=== PATIENT | female | born 1945 | race Caucasian/White ===

== ENCOUNTER 2016-12-05 16:32 | Inpatient (IN) | payer MEDICARE, OTHER ==
[~2016-12-05] VITALS: Ht 157.5 cm; Wt 89.9 kg
[2016-12-05 17:13] LABS: BASO # 0.1 x10^3/uL (0.0-0.2); BASO % 0 % (0-3); EOS % 0 % (0-3); HEMATOCRIT 38.3 % (36.0-47.0); HEMOGLOBIN 11.8 g/dL (12.0-15.5); LYMPH % 6 % (24-48); MEAN CORPUSCULAR HEMOGLOBIN 26 pg (25-35); MEAN CORPUSCULAR HGB CONC 31 g/dL (31-37); MEAN CORPUSCULAR VOLUME 82 fL (79-100); MONO % 5 % (0-9); NEUT % 89 % (31-73); PLATELET COUNT 415 x10^3/uL (140-400); RED BLOOD COUNT 4.65 x10^6/uL (3.50-5.40); RED CELL DISTRIBUTION WIDTH 17.4 % (11.5-14.5); WHITE BLOOD COUNT 33.3 x10^3/uL (4.0-11.0)
[2016-12-05 17:28] LABS: CALCIUM 9.5 mg/dL (8.5-10.1); CREATININE 1.4 mg/dL (0.6-1.0); GFR 37.3; POTASSIUM 3.9 mmol/L (3.5-5.1)
[2016-12-05] MEDS ORDERED: IV NORMAL SALINE 1000ML BAG 1,000 ML IV ONE (17:30)
[2016-12-05] MEDS ORDERED: CEFTRIAXONE 1GM IVPB FOR OMNI 50 ML IV ONE (17:30)
--- NOTE | 2016-12-05 17:31 | PHYS DOC ---
Past Medical History Past Medical History: COPD, Fibromyalgia Past Surgical History: Appendectomy, Cholecystectomy, Hysterectomy Drug Use: None Adult General Chief Complaint Chief Complaint: SHORTNESS OF BREATH HPI HPI Patient is a 71 year old female who presents with shortness of breath, confusion, cough. Patient reports she woke up short of breath. On arrival to the ED her oxygen saturation was in the 80s on room air. Patient reports she wears 3 L of oxygen at night, but none during the day. She denies any chest discomfort. She does report feeling a little for her arms and legs. She has had a cough for the past couple days,. In addition, she does feel a little bit confused. She denies fever. She has not taken anything specifically for these symptoms. She did take 2 Percocet this morning which is her usual dose of pain medication for her fibromyalgia. Review of Systems Review of Systems Constitutional: Denies fever or chills Eyes: Denies change in visual acuity or eye pain HENT: Denies nasal congestion or sore throat Respiratory: Cough, shortness of breath Cardiovascular: Denies chest pain GI: Denies abdominal pain, nausea, vomiting, bloody stools or diarrhea : Denies dysuria or hematuria Musculoskeletal: Achy in arms and legs Integument: Denies rash or skin lesions Neurologic: Mild confusion. Denies headache, focal weakness or sensory changes Current Medications Current Medications Current Medications Medications (Trade) Dose Ordered Sig/Chey Start Time Stop Time Status Last Admin Dose Admin Azithromycin (Zithromax 500mg Ivpb For Omni) 250 ml @ 250 mls/hr 1X ONCE 12/05/16 18:00 12/05/16 18:59 Ceftriaxone Sodium 50 ml @ 100 mls/hr 1X ONCE 12/05/16 17:30 12/05/16 17:59 Sodium Chloride 1,000 ml @ 1,000 mls/hr 1X ONCE 12/05/16 17:30 12/05/16 18:29 12/05/16 17:27 1,000 MLS/HR Allergies Allergies Allergies Coded Allergies Type Severity Reaction Last Updated Verified pregabalin Adverse Reaction Mild WEIGHT GAIN 12/05/16 Yes Physical Exam Physical Exam Constitutional: Well developed, well nourished HENT: Normocephalic, atraumatic, bilateral external ears normal Eyes: EOMI, conjunctiva normal, no discharge Neck: Normal range of motion, no stridor Cardiovascular: Heart rate normal, regular rhythm, no murmur Lungs & Thorax: Bilateral breath sounds clear to auscultation Abdomen: Bowel sounds normal, soft, non-distended, no TTP Skin: Warm, dry, no erythema, no rash Extremities: No obvious deformity, no edema Neurologic: Somnolent but arousable, oriented X 3, strength and sensation to light touch intact and symmetrical throughout, no gross deficits noted Current Patient Data Vital Signs Vital Signs Date Time Temp Pulse Resp B/P Pulse Ox O2 Delivery O2 Flow Rate FiO2 12/05/16 16:38 98.5 69 16 116/55 91 Nasal Cannula 1.5 98.5 Lab Values Laboratory Tests Test 12/05/16 17:00 White Blood Count 33.3x10^3/uL (4.0-11.0) H Red Blood Count 4.65x10^6/uL (3.50-5.40) Hemoglobin 11.8g/dL (12.0-15.5) L Hematocrit 38.3% (36.0-47.0) Mean Corpuscular Volume 82fL (79-100) Mean Corpuscular Hemoglobin 26pg (25-35) Mean Corpuscular Hemoglobin Concent 31g/dL (31-37) Red Cell Distribution Width 17.4% (11.5-14.5) H Platelet Count 415x10^3/uL (140-400) H Neutrophils (%) (Auto) 89% (31-73) H Lymphocytes (%) (Auto) 6% (24-48) L Monocytes (%) (Auto) 5% (0-9) Eosinophils (%) (Auto) 0% (0-3) Basophils (%) (Auto) 0% (0-3) Neutrophils # (Auto) 29.5x10^3uL (1.8-7.7) H Lymphocytes # (Auto) 2.0x10^3/uL (1.0-4.8) Monocytes # (Auto) 1.5x10^3/uL (0.0-1.1) H Eosinophils # (Auto) 0.1x10^3/uL (0.0-0.7) Basophils # (Auto) 0.1x10^3/uL (0.0-0.2) Segmented Neutrophils % 67% (35-66) H Band Neutrophils % 22% (0-9) H Lymphocytes % 7% (24-48) L Monocytes % 4% (0-10) Toxic Granulation Slight Platelet Estimate Adequate (ADEQUATE) Anisocytosis Slight Sodium Level 145mmol/L (136-145) Potassium Level 3.9mmol/L (3.5-5.1) Chloride Level 106mmol/L (98-107) Carbon Dioxide Level 30mmol/L (21-32) Anion Gap 9 (6-14) Blood Urea Nitrogen 19mg/dL (7-20) Creatinine 1.4mg/dL (0.6-1.0) H Estimated GFR (Cockcroft-Gault) 37.3 Glucose Level 134mg/dL (70-99) H Calcium Level 9.5mg/dL (8.5-10.1) Troponin I Quantitative < 0.017ng/mL (0.000-0.055) AA-Rev-M-Type Natriuretic Peptide 1357pg/mL (0-124) H Laboratory Tests 12/05/16 17:00 Laboratory Tests 12/05/16 17:00 EKG EKG EKG (my read): sinus rhythm, rate 66, normal axis, MS 206ms, no acute ST/T changes Radiology/Procedures Radiology/Procedures CXR (my read): Hazy opacity R lower lung field Course & Med Decision Making Course & Med Decision Making Pertinent Labs and Imaging studies reviewed. (See chart for details) Patient is 71-year-old female who presents with shortness of breath, cough, slight confusion. Has history of COPD, question whether she could be hypercarbic although she does have clear lung sounds. Will obtain EKG, chest x- ray, labs to evaluate. EKG and imaging results as above. Labs notable for white blood count 33,000. Will also obtain lactic acid and blood cultures. ABG shows mild acidosis with pCO2 56.2. Will trial BiPAP. Will treat as community- acquired pneumonia this time given white count and chest x-ray findings. Liter of saline ordered. Discussed results with patient and son-in-law. Discussed with Dr. Flowers, will admit under her care for further evaluation and treatment. Patient's daughter can be reached at: Lexy Soto Trevor Disclaimer Trevor Disclaimer This electronic medical record was generated, in whole or in part, using a voice recognition dictation system. Departure Departure Impression: Primary Impression: SOB (shortness of breath) Additional Impression: Pneumonia Disposition: 09 ADMITTED INPATIENT Admitting Physician: Isaac Flowers Condition: GUARDED Referrals: UNKNOWN PCP NAME (PCP) Problem Qualifiers CHRISTIANA MCADAMS MD Dec 05, 2016 17:31
[2016-12-05 17:33] LABS: PLT ESTIMATE ADEQUATE (ADEQUATE)
[2016-12-05 17:34] LABS: ANISOCYTOSIS SLIGHT; TOXIC GRANULATION SLIGHT
[2016-12-05 17:35] LABS: HCO3 ABG 29 mmol/L (21-28); PCO2 ABG 56 mmHg (35-46); PH ABG 7.33 (7.35-7.45); PO2 ABG 61 mmHg (65-108); SAT O2 ABG 88 % (92-99)
[2016-12-05 17:56] LABS: OBC FLU VALID
[2016-12-05] MEDS ORDERED: AZITHRMYCN 500MG IVPB FOR OMNI 250 ML IV ONE (18:00)
[2016-12-05 18:07] LABS: FIO2 ABG 32
--- NOTE | 2016-12-05 18:31 | ACF ---
Admission Forms Criteria PNEUMONIA, COMMUNITY ACQUIRED Clinical Indications for Admission to Inpatient Care ( Place 'X' for any and all applicable criteria): Admission is indicated for ANY ONE of the following (1)(2)(3): [X]I. Hypoxemia indicated by ANY ONE of the following: [X]a) Oxygen saturation less than 90% while breathing room air [ ]b) PO2 less than 60 mm Hg (8.0 kPa) while breathing room air [ ]c) Chronic lung disease with significant deterioration from baseline oxygenation [ ]II. Appropriate diagnostic testing and treatment unavailable in outpatient or recovery facility (eg,testing or infection control measures unavailable(10) [ ]III. Moderate-risk or high-risk category patients (Pneumonia Severity Index (PSI) class IV or V, or CURB-65 score of 3 or greater). [ ]IV. Outpatient treatment failure as indicated by ANY ONE of the following(9) : [ ]a) Failure to respond to antibiotic (eg, resistant organism) [ ]b) Clinically significant adverse effects from medication (eg, vomiting) [ ]c) Complications of pneumonia (eg, empyema, bacteremia) [ ]d) Significant worsening of comorbid cond necessitating inpatient care (eg, chronic heart failure) [ ]V. Intermediate-risk category patients (eg, PSI class III or CURB-65 score 2) who do not improve with initial therapy and observation. [ ]. Immunocompromised patients (eg, AIDS, chronic steroid use) at moderate or high risk based on clinical evaluation. [ ]VII. Complicated pleural effusions (eg, exudative, loculated) [ ]VIII.Hemodynamic instability [ ] IX. Altered mental status that is severe or persistent. [ ]X. Dehydration that is severe or persistent. [ ]XI. Bacteremia [ ]XII. Respiratory finding (eg. tachypnea) that do not respond to outpatient or observation care treatment Extended stay beyond goal length of stay may be needed for (20) [ ]a) Unclear diagnosis [ ]b) Pleural disease [ ]c) Severe pneumonia or treatment failure (25 [ ]d) Respiratory failure (anticipate invasive or noninvasive ventilatory support) [ ]e) Abnormal serum electrolytes (serum Na concentration less than 135 mEq/L (mmol/L) (32)(33) [ ]f) Clinically significant comorbid illness (eg, heart failure, atrial fibrillation with rapid heart rate, alcohol withdrawal, renal insufficiency)(34)(35) [ ]g) Comorbid acute exacerbation of COPD(36) [ ]h) Concomitant diagnosis of malignancy that may be associated with malnutrition, immunologic impairment, or bronchial obstruction. [ ]i) Concomitant altered mental status [ ]j) Culture-identified Gram-negative or antibiotic-resistant organism (eg, Pseudomonas, methicillin-resistant Staphylococcus aureus)(30) [ ]k) Healthcare-associated pneumonia The original [employer] content created by [employer] has been revised. The portions of the content which have been revised are identified through the use of italic text or in bold, and [facility] has neither reviewed nor approved the modified material. All other unmodified content is copyright [employer]. Please see references footnoted in the original [employer] [facility] edition 2016 Admission Criteria Met?: Yes HORACE GANN Dec 05, 2016 18:31
[2016-12-05 18:45] VITALS: BP 115/68
[2016-12-05 19:00] VITALS: BP 115/68
[2016-12-05 20:00] VITALS: BP 87/45
[2016-12-05 21:00] VITALS: BP 100/57
[2016-12-05 22:00] VITALS: BP 91/52
[2016-12-05 23:00] VITALS: BP 101/50
[2016-12-06] VITALS (17 sets, daily range): BP systolic 82–151; BP diastolic 42–72
[2016-12-06] MEDS ORDERED: MORPHINE SULFATE 2 MG/ML DISP.SYRIN. IV PRN
[2016-12-06] MEDS ORDERED: BENZOCAINE/MENTHOL LOZENGE. PO PRN
[2016-12-06] MEDS: MORPHINE SULFATE 2 MG/ML DISP.SYRIN. IV PRN (00:15)
--- NOTE | 2016-12-06 06:08 | EKG ---
[facility] [address] [place] [address] Test Date: 2016-12-05 Test Time: 16:46:05 Pat Name: ANTHONY BROWN Department: Room: Gender: F Mandarin Chinese Teacher: : 1945 Requested By: CHRISTIANA MCADAMS Order Number: [id number] Reading MD: Measurements Intervals [place] Rate: 66 P: 90 HI: 206 QRS: 46 QRSD: 84 T: 38 QT: 426 QTc: 448 Interpretive Statements SINUS RHYTHM NORMAL ECG RI6.01 Unconfirmed report No previous ECG available for comparison
--- NOTE | 2016-12-06 08:15 | RAD ---
Portable chest, 12/05/2016: History: Shortness of breath, COPD The heart appears to be within normal limits in size for the AP technique. The pulmonary vascularity is normal. No pulmonary infiltrate is seen. There is no evidence of pleural fluid. Surgical clips are evident in the left upper quadrant. IMPRESSION: No acute cardiopulmonary abnormality is detected.
[2016-12-06] MEDS: IPRATRPIUM/ALBUTEROL 0.5/2.5MG 3 ML NEBU. NEB SCH ×3 (12:00→20:06)
[2016-12-06] MEDS: AZITHROMYCIN 250 MG TABLET PO SCH (12:29)
[2016-12-06] MEDS: methylPREDNISolone SOD SUCC PF 40 MG/ML VIAL. IV SCH ×2 (12:29→21:43)
--- NOTE | 2016-12-06 12:47 | PDOC ---
OBJECTIVE Vital Signs Vital Signs Date Time Temp Pulse Resp B/P Pulse Ox O2 Delivery O2 Flow Rate FiO2 12/06/16 12:00 98.2 57 18 108/72 100 Nasal Cannula 2.0 98.2 12/06/16 12:00 Nasal Cannula 2.0 12/06/16 11:00 46 17 99/55 100 Nasal Cannula 2.0 12/06/16 10:00 55 19 111/60 100 Nasal Cannula 2.0 12/06/16 09:00 52 18 88/62 98 Nasal Cannula 2.0 12/06/16 08:00 Nasal Cannula 3.0 12/06/16 08:00 53 17 104/42 98 Nasal Cannula 2.0 12/06/16 07:00 98.1 18 90/43 98 Nasal Cannula 3.0 98.1 12/06/16 06:00 51 17 91/44 98 Nasal Cannula 3.0 12/06/16 05:00 50 22 90/61 98 Nasal Cannula 3.0 12/06/16 04:00 97.8 56 19 119/51 98 Nasal Cannula 3.0 97.8 12/06/16 04:00 Nasal Cannula 3.0 12/06/16 03:00 47 20 82/57 97 Nasal Cannula 3.0 12/06/16 02:00 51 17 90/47 95 Nasal Cannula 3.0 12/06/16 01:06 19 97 Nasal Cannula 3.0 12/06/16 01:00 53 19 90/46 97 Nasal Cannula 3.0 12/06/16 00:15 20 97 Nasal Cannula 3.0 12/06/16 00:00 97.8 56 19 100/57 95 Nasal Cannula 3.0 97.8 12/06/16 00:00 Nasal Cannula 3.0 12/05/16 23:00 63 15 101/50 96 Nasal Cannula 3.0 12/05/16 22:00 61 16 91/52 95 BiPAP/CPAP 12/05/16 21:00 58 15 100/57 97 BiPAP/CPAP 12/05/16 20:32 99 BiPAP/CPAP 12/05/16 20:00 Bi-pap 12/05/16 20:00 97.7 63 16 87/45 96 BiPAP/CPAP 97.7 12/05/16 19:00 63 16 115/68 96 BiPAP/CPAP 12/05/16 18:45 97.5 54 18 115/68 96 BiPAP/CPAP 97.5 12/05/16 18:00 99 BiPAP/CPAP 12/05/16 17:36 61 17 97/65 83 Nasal Cannula 1.5 12/05/16 17:06 59 16 79/56 89 Nasal Cannula 1.5 12/05/16 16:38 98.5 69 16 116/55 91 Nasal Cannula 1.5 98.5 12/05/16 16:36 67 16 116/55 95 Nasal Cannula 1.5 I & O Intake and Output 12/06/16 07:00 Intake Total 1800 ml Balance 1800 ml Intake Oral 500 ml IV Total 1300 ml # Voids 1 ASSESSMENT/PLAN Assessment/Plan [id number] H&P dictated Problems: COMMENT Lab Laboratory Tests Test 12/05/16 16:42 12/05/16 17:00 12/05/16 17:20 O2 Saturation 88% (92-99) Arterial Blood pH 7.33 (7.35-7.45) Arterial Blood pCO2 at Patient Temp 56mmHg (35-46) Arterial Blood pO2 at Patient Temp 61mmHg (65-108) Arterial Blood HCO3 29mmol/L (21-28) Arterial Blood Base Excess 2mmol/L (-3-3) FiO2 32 White Blood Count 33.3x10^3/uL (4.0-11.0) Red Blood Count 4.65x10^6/uL (3.50-5.40) Hemoglobin 11.8g/dL (12.0-15.5) Hematocrit 38.3% (36.0-47.0) Mean Corpuscular Volume 82fL (79-100) Mean Corpuscular Hemoglobin 26pg (25-35) Mean Corpuscular Hemoglobin Concent 31g/dL (31-37) Red Cell Distribution Width 17.4% (11.5-14.5) Platelet Count 415x10^3/uL (140-400) Neutrophils (%) (Auto) 89% (31-73) Lymphocytes (%) (Auto) 6% (24-48) Monocytes (%) (Auto) 5% (0-9) Eosinophils (%) (Auto) 0% (0-3) Basophils (%) (Auto) 0% (0-3) Neutrophils # (Auto) 29.5x10^3uL (1.8-7.7) Lymphocytes # (Auto) 2.0x10^3/uL (1.0-4.8) Monocytes # (Auto) 1.5x10^3/uL (0.0-1.1) Eosinophils # (Auto) 0.1x10^3/uL (0.0-0.7) Basophils # (Auto) 0.1x10^3/uL (0.0-0.2) Segmented Neutrophils % 67% (35-66) Band Neutrophils % 22% (0-9) Lymphocytes % 7% (24-48) Monocytes % 4% (0-10) Toxic Granulation Slight Platelet Estimate Adequate (ADEQUATE) Anisocytosis Slight Sodium Level 145mmol/L (136-145) Potassium Level 3.9mmol/L (3.5-5.1) Chloride Level 106mmol/L (98-107) Carbon Dioxide Level 30mmol/L (21-32) Anion Gap 9 (6-14) Blood Urea Nitrogen 19mg/dL (7-20) Creatinine 1.4mg/dL (0.6-1.0) Estimated GFR (Cockcroft-Gault) 37.3 Glucose Level 134mg/dL (70-99) Lactic Acid Level 1.2mmol/L (0.4-2.0) Calcium Level 9.5mg/dL (8.5-10.1) Troponin I Quantitative < 0.017ng/mL (0.000-0.055) GJ-[id number]-R-Type Natriuretic Peptide 1357pg/mL (0-124) Thyroid Stimulating Hormone (TSH) 1.050uIU/mL (0.358-3.74) Influenza Type A Antigen Negative (NEGATIVE) Influenza Type B Antigen Negative (NEGATIVE) NAVDEEP BELLA MD Dec 06, 2016 12:46
[2016-12-06] MEDS: CEFTRIAXONE SODIUM 1 GM in IV NORMAL SALINE 50ML 50 ML IV SCH (13:04)
[2016-12-06] MEDS: CITALOPRAM 20 MG TABLET. PO SCH (13:04)
[2016-12-06] MEDS: GABAPENTIN 300 MG CAPSULE. PO SCH ×2 (13:04→21:43)
--- NOTE | 2016-12-06 13:10 | PREOP HP ---
DATE OF SERVICE: HISTORY OF PRESENT ILLNESS: The patient is a 71-year-old lady who presented to the Emergency Room complaining of increasing shortness of breath. She is slightly confused, coughing, has not felt good. She was hypoxic upon her arrival to the Emergency Room with sats in the 80s. She does not normally wear oxygen at home. She denies chest pain, nausea, vomiting, diarrhea or constipation, fever or chills. She was feeling confused, coughing, having increasing shortness of breath and pain in the lower extremities. PAST MEDICAL HISTORY: Significant for COPD and emphysema, previous history of pneumonia, gastroesophageal reflux disease, cholecystectomy, previous history of hysterectomy, UTIs in the past. Also, history of depression and neuropathy. SOCIAL HISTORY: She quit smoking. She denies use of alcohol or drug use. She had a flu shot and pneumonia vaccine in the past. REVIEW OF SYSTEMS: CONSTITUTIONAL: Denies fever or chills. EYES: Denies visual changes. HEENT: Denies nasal congestion or sore throat. RESPIRATORY: Does have cough and increasing shortness of breath. CARDIOVASCULAR: Denies chest pain. Denies dizziness or syncope. GASTROINTESTINAL: Denies abdominal pain, nausea or vomiting. GENITOURINARY: Denies dysuria. MUSCULOSKELETAL: She does have pain in her lower extremity and symptoms of neuropathy. PHYSICAL EXAMINATION: GENERAL: She is well-developed and she was in distress upon arrival to the Emergency Room. She is now off the CPAP. HEENT: Normocephalic, atraumatic. Eyes with conjunctiva color normal. NECK: Supple. HEART: Regular rate and rhythm, but bradycardic most of the night and is bradycardic now. ABDOMEN: Soft, nontender, no flank pain. SKIN: Warm and dry. EXTREMITIES: No edema, clubbing or cyanosis. NEUROLOGIC: She moves all extremities. IMPRESSION: 1. Chronic obstructive pulmonary disease exacerbation with hypoxia. 2. Leukocytosis and possible pneumonia. 3. Chronic kidney disease. 4. Neuropathy. 5. Depression. 6. Hypotension. PLAN: The patient is admitted, started on CPAP, hydration, antibiotics, steroids, bronchodilators and pulmonary consultation. We will check TSH for the bradycardia and consult Cardiology as well. NAVDEEP BELLA MD DR: BETH/marvel JOB#: [id number] / [id number]
[2016-12-06 14:03] LABS: BILIRUBIN,URINE NEGATIVE (NEG); GLUCOSE,URINE NEGATIVE (NEG); NITRITE,URINE NEGATIVE (NEG); PROTEIN,URINE NEGATIVE (NEG-TRACE)
[2016-12-06 14:15] LABS: BACTERIA,URINE 0 /HPF (0-FEW); RBC,URINE 0 /HPF (0-2); SQUAMOUS EPITHELIAL CELL,UR FEW /LPF; WBC,URINE >40 /HPF (0-4)
--- NOTE | 2016-12-06 15:35 | PDOC2 ---
CARDIAC CONSULT DATE OF CONSULT Date of Consult DATE: 12/06/16 TIME: 13:20 REASON FOR CONSULT Reason for Consult: Bradycardia REFERRING PHYSICIAN Referring Physician: Dr. Flowers SOURCE Source: Chart review, Patient HISTORY OF PRESENT ILLNESS HISTORY OF PRESENT ILLNESS This is a 71 yo female who presented secondary to shortness of breath, confusion , and excessive sleepiness/drowsiness. Patient reports symptoms began upon awakening yesterday morning. Oxygen saturation in 80's on RA upon arrival to ED. Normal wears O2 at HS. Denies any chest pain, palpitations, dizziness, diaphoresis, or n/v. Reports compliance with medications. Recalls h/o bradycardia. Office notes review- HR generally in upper 50's to low 60's per recorded vitals. Recent cough/ congestion treated with course of antibiotics. PAST MEDICAL HISTORY Cardiovascular: Hyperlipidemia, Other (bradycardia ) Pulmonary: COPD, Pneumonia, Other (SHANNON with 2LNC at HS) CENTRAL NERVOUS SYSTEM: Periperal neuropathy GI: GERD Psych: Anxiety, Depression Musculoskeletal: Osteoarthritis, Other (chronic pain) Renal/: UTI PAST SURGICAL HISTORY Past Surgical History: Cholecystectomy, Hysterectomy, Colectomy, Other (Basilio shunt, ) FAMILY HISTORY Family History: Coronary Artery Disease, Stroke SOCIAL HISTORY Smoke: No ALCOHOL: none Lives: Alone CURRENT MEDICATIONS CURRENT MEDICATIONS Current Medications Medications (Trade) Dose Ordered Sig/Chey Route PRN Reason Start Time Stop Time Status Last Admin Dose Admin Sodium Chloride 1,000 ml @ 1,000 mls/hr 1X ONCE IV 12/05/16 17:30 12/05/16 18:29 DC 12/05/16 17:27 Ceftriaxone Sodium 50 ml @ 100 mls/hr 1X ONCE IV 12/05/16 17:30 12/05/16 17:59 DC 12/05/16 17:56 Azithromycin (Zithromax 500mg Ivpb For Omni) 250 ml @ 250 mls/hr 1X ONCE IV 12/05/16 18:00 12/05/16 18:59 DC 12/05/16 18:12 Morphine Sulfate 2 mg PRN Q4HRS PRN IV SEVERE PAIN 12/06/16 00:00 12/06/16 00:15 Throat Lozenges 1 kristina 1 kristina PRN Q2HRS PRN PO SORE THROAT 12/06/16 00:00 12/06/16 00:14 Ceftriaxone Sodium/Sodium Chloride (Rocephin/Iv Sodium Chloride 0.9% 50ml) 50 ml @ 100 mls/hr Q24H IV 12/06/16 12:00 12/06/16 13:04 Azithromycin (Zithromax) 500 mg DAILY PO 12/06/16 12:00 12/06/16 12:29 Methylprednisolone Sodium Succinate (Solu-Medrol 40mg Vial) 40 mg Q8HRS IV 12/06/16 12:00 12/06/16 12:29 Citalopram Hydrobromide (Celexa) 20 mg DAILY PO 12/06/16 13:00 12/06/16 13:04 Gabapentin (Neurontin) 300 mg TID PO 12/06/16 14:00 12/06/16 13:04 ALLERGIES ALLERGIES: Coded Allergies: pregabalin (Verified Adverse Reaction, Mild, WEIGHT GAIN, 12/05/16) ROS Review of System 14 point ROS conducted with pertinent positives noted above in HPI PHYSICAL EXAM General: Alert, Oriented X3, Cooperative, No acute distress HEENT: Atraumatic, Mucous membr. moist/pink Lungs: Clear to auscultation, Normal air movement Heart: Normal S1, Normal S2, Other (SB- HR 50) Abdomen: No tenderness Extremities: No edema, Normal pulses Skin: No breakdown, No significant lesion Neuro: Normal speech, Sensation intact Psych/Mental Status: Mental status NL, Mood NL MUSCULOSKELETAL: Osteoarthritic changes both hands VITALS VITALS Vital Signs Date Time Temp Pulse Resp B/P Pulse Ox O2 Delivery O2 Flow Rate FiO2 12/06/16 12:00 98.2 57 18 108/72 100 Nasal Cannula 2.0 98.2 LABS Lab: Laboratory Tests Test 12/05/16 16:42 12/05/16 17:00 12/05/16 17:20 12/05/16 19:00 O2 Saturation 88% (92-99) Arterial Blood pH 7.33 (7.35-7.45) Arterial Blood pCO2 at Patient Temp 56mmHg (35-46) Arterial Blood pO2 at Patient Temp 61mmHg (65-108) Arterial Blood HCO3 29mmol/L (21-28) Arterial Blood Base Excess 2mmol/L (-3-3) FiO2 32 White Blood Count 33.3x10^3/uL (4.0-11.0) Red Blood Count 4.65x10^6/uL (3.50-5.40) Hemoglobin 11.8g/dL (12.0-15.5) Hematocrit 38.3% (36.0-47.0) Mean Corpuscular Volume 82fL (79-100) Mean Corpuscular Hemoglobin 26pg (25-35) Mean Corpuscular Hemoglobin Concent 31g/dL (31-37) Red Cell Distribution Width 17.4% (11.5-14.5) Platelet Count 415x10^3/uL (140-400) Neutrophils (%) (Auto) 89% (31-73) Lymphocytes (%) (Auto) 6% (24-48) Monocytes (%) (Auto) 5% (0-9) Eosinophils (%) (Auto) 0% (0-3) Basophils (%) (Auto) 0% (0-3) Neutrophils # (Auto) 29.5x10^3uL (1.8-7.7) Lymphocytes # (Auto) 2.0x10^3/uL (1.0-4.8) Monocytes # (Auto) 1.5x10^3/uL (0.0-1.1) Eosinophils # (Auto) 0.1x10^3/uL (0.0-0.7) Basophils # (Auto) 0.1x10^3/uL (0.0-0.2) Segmented Neutrophils % 67% (35-66) Band Neutrophils % 22% (0-9) Lymphocytes % 7% (24-48) Monocytes % 4% (0-10) Toxic Granulation Slight Platelet Estimate Adequate (ADEQUATE) Anisocytosis Slight Sodium Level 145mmol/L (136-145) Potassium Level 3.9mmol/L (3.5-5.1) Chloride Level 106mmol/L (98-107) Carbon Dioxide Level 30mmol/L (21-32) Anion Gap 9 (6-14) Blood Urea Nitrogen 19mg/dL (7-20) Creatinine 1.4mg/dL (0.6-1.0) Estimated GFR (Cockcroft-Gault) 37.3 Glucose Level 134mg/dL (70-99) Lactic Acid Level 1.2mmol/L (0.4-2.0) Calcium Level 9.5mg/dL (8.5-10.1) Troponin I Quantitative < 0.017ng/mL (0.000-0.055) TS-Mzi-[id number]-Type Natriuretic Peptide 1357pg/mL (0-124) Thyroid Stimulating Hormone (TSH) 1.050uIU/mL (0.358-3.74) Influenza Type A Antigen Negative (NEGATIVE) Influenza Type B Antigen Negative (NEGATIVE) Nasal Screen MRSA (PCR) Negative (Negative) Test 12/06/16 13:09 Urine Collection Type Unknown Urine Color Yellow Urine Clarity Clear Urine pH 6.0 Urine Specific [place] <=1.005 Urine Protein Negativemg/dL (NEG-TRACE) Urine Glucose (UA) Negativemg/dL (NEG) Urine Ketones (Stick) Negativemg/dL (NEG) Urine Blood Negative (NEG) Urine Nitrite Negative (NEG) Urine Bilirubin Negative (NEG) Urine Urobilinogen Dipstick 1.0mg/dL (0.2 mg/dL) Urine Leukocyte Esterase Moderate (NEG) Urine RBC 0/HPF (0-2) Urine WBC >40/HPF (0-4) Urine Squamous Epithelial Cells Few/LPF Urine Bacteria 0/HPF (0-FEW) ECHOCARDIOGRAM ECHOCARDIOGRAM <Conclusion> The left ventricular systolic function is normal. The Ejection Fraction is 55-60%. There is normal LV segmental wall motion. Trace to mild mitral regurgitation. Trace tricuspid regurgitation. There is mild pulmonary hypertension. The PA pressure was estimated at 32 mmHg. There is no evidence of significant pericardial effusion. DATE: 12/06/16 1700 ASSESSMENT/PLAN ASSESSMENT/PLAN 1. Bradycardia, asymptomatic TSH WNL Avoid AV jean carlos blocking agents. Narcotics contributor ? monitor tele- if prolonged pause- consider PPM If no acute events on telemetry- event monitor at discharge 2. Acute hypoxic respiratory failure with AE COPD improved per pul 3. Leukocytosis ? acute viral illness check UA antibiotics initiated 4. Mild NT Pro BNP CXR with no vascular congestion echo with normal LV function; EF 55-60% no s/s of overt HF continue routine oral lasix 5. MARY with CKD Problems: ALEJANDRO CRAFT APRN Dec 06, 2016 15:35
--- NOTE | 2016-12-06 17:01 | CARD ---
APPROVED REPORT EXAM: Two-dimensional and M-mode echocardiogram with Doppler and color Doppler. Other Information Quality : Good INDICATION Dyspnea Elevated BNP 2D DIMENSIONS RVDd3.5 (2.9-3.5cm)Left Atrium(2D)3.7 (1.6-4.0cm) IVSd1.0 (0.7-1.1cm)Aortic Root(2D)2.7 (2.0-3.7cm) LVDd4.5 (3.9-5.9cm)LVOT Diameter2.1 (1.8-2.4cm) PWd1.0 (0.7-1.1cm)LVDs2.8 (2.5-4.0cm) FS (%) 30.0 %SV62.7 ml LVEF(%)60.0 (>50%) M-Mode DIMENSIONS Aortic Cusp Exc1.36 (1.5-2.0cm) Aortic Valve AoV Peak Stan.238.8cm/sAoV VTI50.0cm AO Peak GR.22.8mmHgLVOT VTI 30.89cm AO Mean GR.11mmHgAVA (VTI)2.10cm2 Mitral Valve MV E Zgzumxup689.9cm/sMV DECEL [id number] MV A Tevdkwac13.1cm/sE/A Ratio1.4 TDI Lateral E' P. V12.36cm/sMedial E' P. V6.63cm/s E/Lateral E'9.9E/Medial E'18.4 Tricuspid Valve TR P. Kmhwnbfz666vx/sRAP [id number] TR Peak Gr.70kxCxPSXX66ffHy Pulmonary Vein S1 Qkdcobdp14.1cm/sS2 Mrraodwt41.68cm/s D2 Fciqojqy84.7cm/sPVa [id number] LEFT VENTRICLE The left ventricle is normal size. There is normal left ventricular wall thickness. The left ventricu lar systolic function is normal. The Ejection Fraction is 55-60%. There is normal LV segmental wall m otion. Transmitral Doppler flow pattern is Grade II-pseudonormal filling dynamics. RIGHT VENTRICLE The right ventricle is normal size. The right ventricular systolic function is normal. ATRIA The left atrium size is normal. The right atrium size is normal. The interatrial septum is intact wit h no evidence for an atrial septal defect or patent foramen ovale as noted on 2-D or Doppler imaging. AORTIC VALVE The aortic valve is calcified but opens well. Doppler and Color Flow revealed no significant aortic r egurgitation. There is no significant aortic valvular stenosis. MITRAL VALVE The mitral valve is calcified but opens well. There is no evidence of mitral valve prolapse. There is no mitral valve stenosis. Doppler and Color-flow revealed trace to mild mitral regurgitation. TRICUSPID VALVE The tricuspid valve is normal in structure and function. Doppler and Color Flow revealed trace tricus pid regurgitation. There is mild pulmonary hypertension. The PA pressure was estimated at 32 mmHg. Th ere is no tricuspid valve stenosis. PULMONIC VALVE The pulmonary valve is normal in structure and function. Doppler and Color Flow revealed trace pulmon ic valvular regurgitation. There is no pulmonic valvular stenosis. GREAT VESSELS The aortic root is normal in size. The ascending aorta is normal in size. The IVC is normal in size a nd collapses >50% with inspiration. PERICARDIAL EFFUSION There is no evidence of significant pericardial effusion. Critical Notification Critical Value: No <Conclusion> The left ventricular systolic function is normal. The Ejection Fraction is 55-60%. There is normal LV segmental wall motion. Trace to mild mitral regurgitation. Trace tricuspid regurgitation. There is mild pulmonary hypertension. The PA pressure was estimated at 32 mmHg. There is no evidence of significant pericardial effusion.
[2016-12-06] MEDS: FUROSEMIDE 40 MG/4 ML VIAL IVP SCH (17:30)
[2016-12-07 03:23] VITALS: BP 132/58
[2016-12-07 05:11] LABS: HEMATOCRIT 33.2 % (36.0-47.0); HEMOGLOBIN 10.3 g/dL (12.0-15.5); RED BLOOD COUNT 3.96 x10^6/uL (3.50-5.40); RED CELL DISTRIBUTION WIDTH 17.2 % (11.5-14.5); WHITE BLOOD COUNT 16.8 x10^3/uL (4.0-11.0)
[2016-12-07 05:43] LABS: ALBUMIN 2.9 g/dL (3.4-5.0); ALBUMIN/GLOBULIN RATIO 0.7 (1.0-1.7); CALCIUM 9.2 mg/dL (8.5-10.1); POTASSIUM 3.6 mmol/L (3.5-5.1); TOTAL BILIRUBIN 0.2 mg/dL (0.2-1.0); TOTAL PROTEIN 6.9 g/dL (6.4-8.2)
[2016-12-07] MEDS: methylPREDNISolone SOD SUCC PF 40 MG/ML VIAL. IV SCH ×3 (06:28→21:18)
[2016-12-07 07:02] VITALS: BP 127/57
[2016-12-07] MEDS: IPRATRPIUM/ALBUTEROL 0.5/2.5MG 3 ML NEBU. NEB SCH ×4 (08:50→20:03)
--- NOTE | 2016-12-07 09:44 | PDOC ---
SUBJECTIVE Subjective feels better today OBJECTIVE Objective Bp better, HR better Vital Signs Vital Signs Date Time Temp Pulse Resp B/P Pulse Ox O2 Delivery O2 Flow Rate FiO2 12/07/16 08:51 96 Nasal Cannula 2.0 12/07/16 07:02 97.7 56 16 127/57 94 Nasal Cannula 2.0 97.7 12/07/16 03:23 98.0 71 16 132/58 94 Nasal Cannula 2.0 98.0 12/06/16 22:37 97.5 92 18 119/50 97 Nasal Cannula 2.0 97.5 12/06/16 20:57 97.8 107 18 151/72 96 Nasal Cannula 2.0 97.8 12/06/16 20:06 95 Nasal Cannula 2.0 12/06/16 20:00 Nasal Cannula 2.0 12/06/16 19:00 98.0 102 21 120/61 99 Nasal Cannula 2.0 98.0 12/06/16 17:13 95 Nasal Cannula 3.0 12/06/16 16:00 98.2 54 18 119/55 100 Nasal Cannula 2.0 98.2 12/06/16 12:00 98.2 57 18 108/72 100 Nasal Cannula 2.0 98.2 12/06/16 12:00 Nasal Cannula 2.0 12/06/16 11:00 46 17 99/55 100 Nasal Cannula 2.0 12/06/16 10:00 55 19 111/60 100 Nasal Cannula 2.0 I & O Intake and Output 12/07/16 07:00 Intake Total 1010 ml Output Total 2500 ml Balance -1490 ml Intake Oral 1010 ml Output Urine Total 2500 ml # Voids 4 # Bowel Movements 1 PHYSICAL EXAM Physical Exam lungs clear heart RRR abd soft ext no edema ASSESSMENT/PLAN Assessment/Plan 1. Chronic obstructive pulmonary disease exacerbation with hypoxia. 2. Leukocytosis improved 3. Chronic kidney disease. 4. Neuropathy. 5. Depression. 6. Hypotension. continue pland , home in AM Problems: COMMENT Lab Laboratory Tests Test 12/06/16 13:09 12/07/16 04:15 Urine Collection Type Unknown Urine Color Yellow Urine Clarity Clear Urine pH 6.0 Urine Specific [place] <=1.005 Urine Protein Negativemg/dL (NEG-TRACE) Urine Glucose (UA) Negativemg/dL (NEG) Urine Ketones (Stick) Negativemg/dL (NEG) Urine Blood Negative (NEG) Urine Nitrite Negative (NEG) Urine Bilirubin Negative (NEG) Urine Urobilinogen Dipstick 1.0mg/dL (0.2 mg/dL) Urine Leukocyte Esterase Moderate (NEG) Urine RBC 0/HPF (0-2) Urine WBC >40/HPF (0-4) Urine Squamous Epithelial Cells Few/LPF Urine Bacteria 0/HPF (0-FEW) White Blood Count 16.8x10^3/uL (4.0-11.0) Red Blood Count 3.96x10^6/uL (3.50-5.40) Hemoglobin 10.3g/dL (12.0-15.5) Hematocrit 33.2% (36.0-47.0) Mean Corpuscular Volume 84fL (79-100) Mean Corpuscular Hemoglobin 26pg (25-35) Mean Corpuscular Hemoglobin Concent 31g/dL (31-37) Red Cell Distribution Width 17.2% (11.5-14.5) Platelet Count 360x10^3/uL (140-400) Sodium Level 143mmol/L (136-145) Potassium Level 3.6mmol/L (3.5-5.1) Chloride Level 105mmol/L (98-107) Carbon Dioxide Level 27mmol/L (21-32) Anion Gap 11 (6-14) Blood Urea Nitrogen 19mg/dL (7-20) Creatinine 1.0mg/dL (0.6-1.0) Estimated GFR (Cockcroft-Gault) 55.0 BUN/Creatinine Ratio 19 (6-20) Glucose Level 189mg/dL (70-99) Calcium Level 9.2mg/dL (8.5-10.1) Total Bilirubin 0.2mg/dL (0.2-1.0) Aspartate Amino Transf (AST/SGOT) 35U/L (15-37) Alanine Aminotransferase (ALT/SGPT) 27U/L (14-59) Alkaline Phosphatase 82U/L (46-116) Total Protein 6.9g/dL (6.4-8.2) Albumin 2.9g/dL (3.4-5.0) Albumin/Globulin Ratio 0.7 (1.0-1.7) NAVDEEP BELLA MD Dec 07, 2016 09:44
[2016-12-07] MEDS: FUROSEMIDE 40 MG/4 ML VIAL IVP SCH (10:03)
[2016-12-07] MEDS: GABAPENTIN 300 MG CAPSULE. PO SCH ×3 (10:03→21:18)
[2016-12-07] MEDS: CITALOPRAM 20 MG TABLET. PO SCH (10:03)
[2016-12-07] MEDS: AZITHROMYCIN 250 MG TABLET PO SCH (10:03)
--- NOTE | 2016-12-07 11:17 | PDOC ---
MARISSA THOMAS JUNIOR COPYWRITER 12/07/16 1117: CARDIO Progress Notes Date and Time Date of Service 12/07/2016 Time of Evaluation 1100 Subjective Subjective: No Chest Pain, No shortness of breath, No Palpitations Vitals Vitals Vital Signs Date Time Temp Pulse Resp B/P Pulse Ox O2 Delivery O2 Flow Rate FiO2 12/07/16 08:51 96 Nasal Cannula 2.0 12/07/16 07:02 97.7 56 16 127/57 97.7 Weight Weight [ ] Input and Output Intake and Output Intake and Output 12/07/16 07:00 Intake Total 1010 ml Output Total 2500 ml Balance -1490 ml Intake Oral 1010 ml Output Urine Total 2500 ml # Voids 4 # Bowel Movements 1 Laboratory Labs Laboratory Tests Test 12/06/16 13:09 12/07/16 04:15 Urine Collection Type Unknown Urine Color Yellow Urine Clarity Clear Urine pH 6.0 Urine Specific [place] <=1.005 Urine Protein Negativemg/dL (NEG-TRACE) Urine Glucose (UA) Negativemg/dL (NEG) Urine Ketones (Stick) Negativemg/dL (NEG) Urine Blood Negative (NEG) Urine Nitrite Negative (NEG) Urine Bilirubin Negative (NEG) Urine Urobilinogen Dipstick 1.0mg/dL (0.2 mg/dL) Urine Leukocyte Esterase Moderate (NEG) Urine RBC 0/HPF (0-2) Urine WBC >40/HPF (0-4) Urine Squamous Epithelial Cells Few/LPF Urine Bacteria 0/HPF (0-FEW) White Blood Count 16.8x10^3/uL (4.0-11.0) Red Blood Count 3.96x10^6/uL (3.50-5.40) Hemoglobin 10.3g/dL (12.0-15.5) Hematocrit 33.2% (36.0-47.0) Mean Corpuscular Volume 84fL (79-100) Mean Corpuscular Hemoglobin 26pg (25-35) Mean Corpuscular Hemoglobin Concent 31g/dL (31-37) Red Cell Distribution Width 17.2% (11.5-14.5) Platelet Count 360x10^3/uL (140-400) Sodium Level 143mmol/L (136-145) Potassium Level 3.6mmol/L (3.5-5.1) Chloride Level 105mmol/L (98-107) Carbon Dioxide Level 27mmol/L (21-32) Anion Gap 11 (6-14) Blood Urea Nitrogen 19mg/dL (7-20) Creatinine 1.0mg/dL (0.6-1.0) Estimated GFR (Cockcroft-Gault) 55.0 BUN/Creatinine Ratio 19 (6-20) Glucose Level 189mg/dL (70-99) Calcium Level 9.2mg/dL (8.5-10.1) Total Bilirubin 0.2mg/dL (0.2-1.0) Aspartate Amino Transf (AST/SGOT) 35U/L (15-37) Alanine Aminotransferase (ALT/SGPT) 27U/L (14-59) Alkaline Phosphatase 82U/L (46-116) Total Protein 6.9g/dL (6.4-8.2) Albumin 2.9g/dL (3.4-5.0) Albumin/Globulin Ratio 0.7 (1.0-1.7) Microbiology Micro Microbiology 12/05/16 Blood Culture - Preliminary, Resulted NO GROWTH AFTER 1 DAY Physical Exam HEENT: Neck Supple W Full Motion Chest: Symmetric LUNGS: Other (diminished bases) Heart: S1S2, RRR (SB while asleep in mid 40s otherwise 70s. ) Abdomen: Soft N/T Extremities: No Edema, No Calf Tenderness Neurology: alert, oriented, follow commands Assessment Assessment 1. Asymptomatic bradycardia: lowest in the mid40s. likely vagally induced. Currently 70s awake. Notable good chronotropic response to activity 2. AECOPD: better 3. UTI 4. Elevated BNP: clinically no acute CHF. 5. CKD3 6. Chronic pain syndrome (fibromyalgia) with chronic opioid use: could be contributing to bradycardia. 7. Suspect SHANNON: sleep apnea could also be contributing to bradycardia denies any previous outpt workup Recommendations 1. Avoid AV jean carlos blocking agents. 2. TTE with preserved EF and normal wall motion with no significant changes. No further cardiac recommendations 3. Recommend outpt SHANNON workup, TRISTAN JAFFE MD 12/07/16 1545: CARDIO Progress Notes Plan Plan Patient seen and examined Patient has improved clinically. We'll continue present medications and increase activities as tolerated. Continue telemetry. MARISSA THOMAS JUNIOR COPYWRITER Dec 07, 2016 11:17 TRISTAN JAFFE MD Dec 07, 2016 15:45
[2016-12-07 11:44] VITALS: BP 112/52
[2016-12-07] MEDS: CEFTRIAXONE SODIUM 1 GM in IV NORMAL SALINE 50ML 50 ML IV SCH (12:49)
[2016-12-07 15:00] VITALS: BP 125/62
[2016-12-07 19:32] VITALS: BP 118/52
[2016-12-07 23:00] VITALS: BP 125/50
[2016-12-08 03:30] VITALS: BP 148/62
[2016-12-08] MEDS: methylPREDNISolone SOD SUCC PF 40 MG/ML VIAL. IV SCH ×2 (06:18→13:59)
[2016-12-08 07:00] VITALS: BP 130/64
[2016-12-08] MEDS: IPRATRPIUM/ALBUTEROL 0.5/2.5MG 3 ML NEBU. NEB SCH ×2 (07:41→11:32)
--- NOTE | 2016-12-08 09:14 | PDOC ---
SUBJECTIVE Subjective FEELS MUCH BETTER, NO NEW COMPLAINTS, HEART RATE HAS BEEN BETTER OBJECTIVE Vital Signs Vital Signs Date Time Temp Pulse Resp B/P Pulse Ox O2 Delivery O2 Flow Rate FiO2 12/08/16 08:00 Room Air 12/08/16 07:41 98 Nasal Cannula 4.0 12/08/16 07:00 97.8 95 18 130/64 96 Nasal Cannula 3.0 97.8 12/08/16 03:30 97.9 55 18 148/62 97 Nasal Cannula 3.0 97.9 12/07/16 23:00 98.2 74 16 125/50 95 Nasal Cannula 3.0 98.2 12/07/16 20:04 98 Nasal Cannula 4.0 12/07/16 20:00 Nasal Cannula 4.0 12/07/16 19:32 97.9 72 18 118/52 97 Nasal Cannula 3.0 97.9 12/07/16 16:01 95 Nasal Cannula 2.0 12/07/16 15:00 98.0 90 18 125/62 93 Room Air 98.0 12/07/16 12:56 95 Room Air 12/07/16 12:12 96 Nasal Cannula 2.0 12/07/16 11:44 97.6 73 20 112/52 93 Room Air 97.6 I & O Intake and Output 12/08/16 07:00 Intake Total 290 ml Output Total 1200 ml Balance -910 ml Intake Oral 240 ml IV Total 50 ml Output Urine Total 1200 ml PHYSICAL EXAM Physical Exam lungs clear now heart RRR abd soft ext no edema ASSESSMENT/PLAN Assessment/Plan home today discussed medicationand given all new scripts Problems: NAVDEEP BELLA MD Dec 08, 2016 09:13
[2016-12-08] MEDS: GABAPENTIN 300 MG CAPSULE. PO SCH ×2 (09:20→13:59)
[2016-12-08] MEDS: AZITHROMYCIN 250 MG TABLET PO SCH (09:20)
[2016-12-08] MEDS: CITALOPRAM 20 MG TABLET. PO SCH (09:20)
[2016-12-08] MEDS ORDERED: AZIT250T6 PO (09:54)
[2016-12-08] MEDS ORDERED: IPRA3AMP NEB (09:54)
[2016-12-08] MEDS ORDERED: CITA20TA9 PO (09:54)
[2016-12-08] MEDS ORDERED: GABA-586 PO (09:54)
[2016-12-08] MEDS ORDERED: METH4TAB2 PO (09:54)
--- NOTE | 2016-12-08 10:06 | PDOC3 ---
Discharge Summary* Date of Admission: Dec 05, 2016 Date of Discharge: Dec 08, 2016 Admitting Diagnosis Problems Medical Problems: (1) Pneumonia Status: Acute (2) SOB (shortness of breath) Status: Acute Final Diagnosis 1. Chronic obstructive pulmonary disease exacerbation with hypoxia. and acute community aquired pneumonia 2. Leukocytosis and pneumonia. 3. Chronic kidney disease. 4. Neuropathy. 5. Depression. 6. Hypotension. 7. SIRS due to pneumonia 8. Bradycardia , resolved avoid jean carlos blocking agents and narcotics Problems Medical Problems: (1) Pneumonia Status: Acute (2) SOB (shortness of breath) Status: Acute CONSULTS pulmonary Cardiology Procedures CXR Echocardiogram Brief Hospital Course Ms. Sloan is a 71 old [sex] who presented with [ ] Disposition/Orders: D/C to Home w/ HH CONDITION AT DISCHARGE: Improved Diet: Cardiac Scheduled Azithromycin (Azithromycin Tablet) 500 MG PO DAILY Citalopram Hydrobromide (Celexa) 20 MG PO DAILY Gabapentin (Gabapentin) 300 MG PO TID Ipratropium/Albuterol Sulfate (Duoneb 0.5-3(2.5) Mg/3 Ml) 3 ML NEB RTQID Methylprednisolone (Medrol) 1 PKG PO UD FOLLOW UP APPOINTMENT: Dr. Landry 1-2 weeks Time Spent Total time spent with patient [] minutes for coordination of care, counseling, and education. NAVDEEP BELLA MD Dec 08, 2016 10:06
[2016-12-08 11:00] VITALS: BP 136/60
[2016-12-08] MEDS: MORPHINE SULFATE 2 MG/ML DISP.SYRIN. IV PRN (12:40)
[2016-12-08] MEDS: CEFTRIAXONE SODIUM 1 GM in IV NORMAL SALINE 50ML 50 ML IV SCH (12:41)
== END 2016-12-08 15:00 | disposition home or self-care (01) | DRG 682 ==
LOC: ER 16:32 → 1 WEST ICU 17:55 → 2 SOUTH 12-06 20:48
PROVIDERS: ADMIT Internal Medicine; ATTEND Internal Medicine
DX: N17.9 Acute kidney failure, unspecified (principal); J18.9 Pneumonia, unspecified organism; J96.01 Acute respiratory failure with hypoxia; J44.0 Chronic obstructive pulmonary disease with (acute) lower respiratory infection; N39.0 Urinary tract infection, site not specified; J44.1 Chronic obstructive pulmonary disease with (acute) exacerbation; E78.5 Hyperlipidemia, unspecified; F32.9 Major depressive disorder, single episode, unspecified; G47.33 Obstructive sleep apnea (adult) (pediatric); G62.9 Polyneuropathy, unspecified; G89.4 Chronic pain syndrome; K21.9 Gastro-esophageal reflux disease without esophagitis; M79.7 Fibromyalgia; N18.3 Chronic kidney disease, stage 3 (moderate); Z79.891 Long term (current) use of opiate analgesic; Z82.3 Family history of stroke; Z82.49 Family history of ischemic heart disease and other diseases of the circulatory system; Z87.01 Personal history of pneumonia (recurrent); Z87.440 Personal history of urinary (tract) infections; Z87.891 Personal history of nicotine dependence; Z90.49 Acquired absence of other specified parts of digestive tract; Z90.710 Acquired absence of both cervix and uterus; I95.9 Hypotension, unspecified; M19.90 Unspecified osteoarthritis, unspecified site
CPT/HCPCS: 36415; 36600; 71010; 80048; 80053; 81001; 82805; 83605; 83880; 84443; 84484; 85007; 85027; 87040; 87086; 87641; 87804; 93005; 93306; 94250; 94620; 94640; 94660; 94760; 96361; 96365; 96375; J0456; J0690; J0696; J1940; J2270; J2920; J7030; J7620; Q0144; 99285-25